=== PATIENT | female | born 1975 | race Caucasian/White ===

== ENCOUNTER 2017-04-14 15:30 | Observation (INO) | payer OTHER ==
[~2017-04-14] VITALS: Ht 162.6 cm; Wt 80.3 kg
[2017-04-14] MEDS ORDERED: VIT1TABL66 PO (16:07)
[2017-04-14] MEDS ORDERED: FERR-89 PO (16:07)
[2017-04-14] MEDS ORDERED: FOLI1 PO (16:07)
[2017-04-14] MEDS ORDERED: PREN-134 PO (16:07)
[2017-04-14] MEDS ORDERED: CALC-1038 PO (16:07)
[2017-04-14 16:11] VITALS: BP 114/57
[2017-04-14] MEDS ORDERED: NIFEdipine 10 MG CAPSULE PO ONE (19:45)
== END 2017-04-14 20:50 | disposition home or self-care (01) ==
LOC: 4S 15:30
PROVIDERS: ADMIT Obstetrics & Gynecology; ATTEND Obstetrics & Gynecology
DX: O46.93 Antepartum hemorrhage, unspecified, third trimester (principal); Z3A.32 32 weeks gestation of pregnancy
CPT/HCPCS: 36415; 59025; 82731; 89060; G0378

== ENCOUNTER 2017-04-29 08:35 | Observation (INO) | payer OTHER ==
[~2017-04-29] VITALS: Ht 172.7 cm; Wt 79.4 kg
[~2017-04-29 08:35] MED LIST: CALC-1038 PO; FERR-89 PO; FOLI1 PO; PREN-134 PO; VIT1TABL66 PO
[2017-04-29 08:51] VITALS: BP 118/63
== END 2017-04-29 10:10 | disposition home or self-care (01) ==
LOC: 4S 08:35
PROVIDERS: ADMIT Obstetrics & Gynecology; ATTEND Obstetrics & Gynecology
DX: O09.523 Supervision of elderly multigravida, third trimester (principal); O98.813 Other maternal infectious and parasitic diseases complicating pregnancy, third trimester; Z3A.34 34 weeks gestation of pregnancy
CPT/HCPCS: 59025; G0378

== ENCOUNTER 2017-05-01 08:30 | Observation (INO) | payer OTHER ==
[~2017-05-01] VITALS: Ht 170.2 cm; Wt 80.3 kg
[2017-05-01 08:43] VITALS: BP 114/59
== END 2017-05-01 09:25 | disposition home or self-care (01) ==
LOC: 4S 08:30
PROVIDERS: ADMIT Obstetrics & Gynecology; ATTEND Obstetrics & Gynecology
DX: O09.523 Supervision of elderly multigravida, third trimester (principal); Z3A.34 34 weeks gestation of pregnancy

== ENCOUNTER 2017-05-04 08:05 | Observation (INO) | payer OTHER ==
[~2017-05-04] VITALS: Ht 172.7 cm; Wt 80.7 kg
[2017-05-04 08:30] VITALS: BP 101/61
== END 2017-05-04 12:00 | disposition home or self-care (01) ==
LOC: 4S 08:05
PROVIDERS: ADMIT Obstetrics & Gynecology; ATTEND Obstetrics & Gynecology
DX: O62.9 Abnormality of forces of labor, unspecified (principal); O26.893 Other specified pregnancy related conditions, third trimester; O09.523 Supervision of elderly multigravida, third trimester; R10.30 Lower abdominal pain, unspecified; Z3A.35 35 weeks gestation of pregnancy
CPT/HCPCS: 59025; G0378

== ENCOUNTER 2017-05-07 07:52 | Observation (INO) | payer OTHER ==
[~2017-05-07] VITALS: Ht 172.7 cm; Wt 79.8 kg
[2017-05-07 09:09] VITALS: BP 113/65
== END 2017-05-07 09:05 | disposition home or self-care (01) ==
LOC: 4S 07:52
PROVIDERS: ADMIT Obstetrics & Gynecology; ATTEND Obstetrics & Gynecology
DX: O09.523 Supervision of elderly multigravida, third trimester (principal); Z3A.35 35 weeks gestation of pregnancy
CPT/HCPCS: 59025; G0378

== ENCOUNTER 2017-05-11 08:48 | Observation (INO) | payer OTHER ==
[~2017-05-11] VITALS: Ht 172.7 cm; Wt 79.8 kg
[2017-05-11 09:53] VITALS: BP 105/64
== END 2017-05-11 09:50 | disposition home or self-care (01) ==
LOC: 4S 08:48
PROVIDERS: ADMIT Obstetrics & Gynecology; ATTEND Obstetrics & Gynecology
DX: O09.523 Supervision of elderly multigravida, third trimester (principal); Z3A.36 36 weeks gestation of pregnancy
CPT/HCPCS: 59025; G0378

== ENCOUNTER 2017-05-15 08:50 | Observation (INO) | payer OTHER ==
[~2017-05-15] VITALS: Ht 172.7 cm; Wt 80.7 kg
[2017-05-15 09:14] VITALS: BP 115/58
== END 2017-05-15 10:30 | disposition home or self-care (01) ==
LOC: 4S 08:50
PROVIDERS: ADMIT Obstetrics & Gynecology; ATTEND Obstetrics & Gynecology
DX: O09.523 Supervision of elderly multigravida, third trimester (principal); Z3A.37 37 weeks gestation of pregnancy
CPT/HCPCS: 59025; G0378

== ENCOUNTER 2017-05-19 08:55 | Observation (INO) | payer OTHER ==
[~2017-05-19] VITALS: Ht 170.2 cm; Wt 81.2 kg
[2017-05-19 09:17] VITALS: BP 122/59
== END 2017-05-19 10:30 | disposition home or self-care (01) ==
LOC: 4S 08:55
PROVIDERS: ADMIT Obstetrics & Gynecology; ATTEND Obstetrics & Gynecology
DX: O09.523 Supervision of elderly multigravida, third trimester (principal); Z3A.37 37 weeks gestation of pregnancy
CPT/HCPCS: 59025; G0378

== ENCOUNTER 2017-05-22 14:20 | Observation (INO) | payer OTHER ==
[~2017-05-22] VITALS: Ht 172.7 cm; Wt 80.7 kg
[2017-05-22 14:35] VITALS: BP 129/68
== END 2017-05-22 16:20 | disposition home or self-care (01) ==
LOC: 4S 14:20
PROVIDERS: ADMIT Obstetrics & Gynecology; ATTEND Obstetrics & Gynecology
DX: O09.523 Supervision of elderly multigravida, third trimester (principal); Z3A.38 38 weeks gestation of pregnancy
CPT/HCPCS: 59025; G0378

== ENCOUNTER 2017-05-25 15:30 | Observation (INO) | payer OTHER ==
[2017-05-25 15:53] VITALS: BP 123/62
== END 2017-05-25 16:55 | disposition home or self-care (01) ==
LOC: 4S 15:30
PROVIDERS: ADMIT Obstetrics & Gynecology; ATTEND Obstetrics & Gynecology
DX: O09.523 Supervision of elderly multigravida, third trimester (principal); Z3A.38 38 weeks gestation of pregnancy
CPT/HCPCS: 59025; G0378

== ENCOUNTER 2017-05-29 08:45 | Observation (INO) | payer OTHER ==
[~2017-05-29] VITALS: Ht 170.2 cm; Wt 82.1 kg
[2017-05-29 09:29] VITALS: BP 125/68
== END 2017-05-29 10:00 | disposition home or self-care (01) ==
LOC: 4S 08:45
PROVIDERS: ADMIT Obstetrics & Gynecology; ATTEND Obstetrics & Gynecology
DX: O26.893 Other specified pregnancy related conditions, third trimester (principal); O09.523 Supervision of elderly multigravida, third trimester; R10.30 Lower abdominal pain, unspecified; Z3A.38 38 weeks gestation of pregnancy
CPT/HCPCS: 59025; G0378

== ENCOUNTER 2017-05-30 18:42 | Observation (INO) | payer OTHER ==
[~2017-05-30] VITALS: Ht 172.7 cm; Wt 81.6 kg
[2017-05-30] MEDS ORDERED: RINGERS SOLUTION,LACTATED 1,000 ML IV SCH ×2 (19:30)
[2017-05-30 20:45] VITALS: BP 138/73
== END 2017-05-30 21:55 | disposition home or self-care (01) ==
LOC: 4S 18:42
PROVIDERS: ADMIT Obstetrics & Gynecology; ATTEND Obstetrics & Gynecology
DX: O62.9 Abnormality of forces of labor, unspecified (principal); O46.93 Antepartum hemorrhage, unspecified, third trimester; O09.523 Supervision of elderly multigravida, third trimester; O26.893 Other specified pregnancy related conditions, third trimester; R10.30 Lower abdominal pain, unspecified; Z3A.39 39 weeks gestation of pregnancy
CPT/HCPCS: 59025; 96360; 96361; G0378; J7120

== ENCOUNTER 2017-05-31 07:04 | Inpatient (IN) | payer OTHER ==
[2017-05-30] MEDS: DEXTROSE 5%-0.45% SODIUM CHL 1,000 ML IV SCH (08:30)
[~2017-05-31] VITALS: Ht 172.7 cm; Wt 81.6 kg
[2017-05-31] MEDS ORDERED: RINGERS SOLUTION,LACTATED 1,000 ML IV ONE ×2 (07:36→08:11)
[2017-05-31] MEDS ORDERED: CITRIC ACID/SODIUM CITRATE 30 ML SOLUTION UDCUP PO ONE (07:45)
[2017-05-31] MEDS ORDERED: METOCLOPRAMIDE HCL 5 MG/ML 2 ML VIAL IVP ONE (07:45)
[2017-05-31] MEDS ORDERED: CefoTEtan DISOD 2 GM/DEXTROSE 50 ML IV ONE (07:45)
[2017-05-31 07:47] VITALS: BP 146/79
[2017-05-31 08:07] LABS: BASOPHILS # (AUTO) 0.01 K/uL (0.00-0.20); BASOPHILS % (AUTO) 0.1 % (0.0-2.0); EOSINOPHILS # (AUTO) 0.12 K/uL (0.00-0.70); HEMATOCRIT 33.6 % (36-46); HEMOGLOBIN 11.3 g/dL (12.0-16.0); LYMPHOCYTES # (AUTO) 1.6 K/uL (1.0-4.8); LYMPHOCYTES % (AUTO) 17.8 % (22.0-44.0); MEAN CORPUSCULAR HEMOGLOBIN 31.4 pg (26.0-34.0); MEAN CORPUSCULAR HGB CONC 33.5 G/dL (31.0-37.0); MEAN CORPUSCULAR VOLUME 94 fL (80-100); MONOCYTES # (AUTO) 0.6 K/uL (0.1-1.0); MONOCYTES % (AUTO) 6.7 % (2.0-9.0); NEUTROPHILS # (AUTO) 6.8 K/uL (1.8-7.7); NEUTROPHILS % (AUTO) 74.1 % (40.0-70.0); RED BLOOD CELL COUNT(AUTO) 3.58 MIL/uL (4.00-5.20); RED CELL DISTRIBUTION WIDTH 14.5 % (11.5-14.5); WHITE BLOOD COUNT (AUTO) 9.2 K/uL (4.5-11.0)
[2017-05-31] MEDS ORDERED: MORPHINE SULFATE/PF 0.5 MG/ML 10 ML AMP ONE (08:11)
[2017-05-31] MEDS ORDERED: MIDAZOLAM HCL 2 MG/2 ML VIAL ONE (08:12)
[2017-05-31] MEDS ORDERED: ONDANSETRON HCL 4 MG/2 ML VIAL IVP PRN ×2 (10:15)
[2017-05-31] MEDS ORDERED: OXYGEN THERAPY IH SCH ×2 (10:15)
[2017-05-31] MEDS ORDERED: FentaNYL CITRATE-PF 100 MCG/2 ML VIAL IVP PRN (10:15)
[2017-05-31] MEDS ORDERED: MORPHINE SULFATE 2 MG/ML SYRINGE IVP PRN (10:15)
[2017-05-31] MEDS ORDERED: DiphenhydrAMINE HCL 50 MG/ML VIAL IVP PRN ×2 (10:15)
[2017-05-31] MEDS ORDERED: ACETAMINOPHEN 1000 MG/ISO-OSM 100 ML IV ONE (10:36)
[2017-05-31] MEDS: ACETAMINOPHEN 1000 MG/ISO-OSM 100 ML IV SCH ×2 (11:25→18:43)
[2017-05-31] MEDS: FentaNYL CITRATE-PF 100 MCG/2 ML VIAL IVP PRN (13:09)
[2017-05-31] MEDS ORDERED: OXYTOCIN 20 UNITS/LACT RINGERS 1,000 ML IV SCH ×2 (13:20→17:30)
[2017-05-31] MEDS ORDERED: OxyCODONE HCL/ACETAMINOPHEN 5-325 MG TABLET PO PRN (13:30)
[2017-05-31] MEDS ORDERED: GLYCERIN/WITCH HAZEL LEAF 40 PADS JAR TP PRN (13:30)
[2017-05-31] MEDS: MORPHINE SULFATE 4 MG/ML SYRINGE IVP PRN (13:49)
[2017-05-31] MEDS ORDERED: KETOROLAC TROMETHAMINE 30 MG/ML VIAL IVP PRN (14:30)
[2017-05-31] MEDS: NALBUPHINE HCL 10 MG/ML VIAL IVP SCH ×2 (15:23→22:44)
[2017-06-01] MEDS: FentaNYL CITRATE-PF 100 MCG/2 ML VIAL IVP PRN (00:15)
[2017-06-01] MEDS: DEXTROSE 5%-0.45% SODIUM CHL 1,000 ML IV SCH ×2 (01:22→15:55)
[2017-06-01] MEDS: ACETAMINOPHEN 1000 MG/ISO-OSM 100 ML IV SCH (04:21)
[2017-06-01 06:30] LABS: BASOPHILS # (AUTO) 0.04 K/uL (0.00-0.20); BASOPHILS % (AUTO) 0.3 % (0.0-2.0); EOSINOPHILS # (AUTO) 0.07 K/uL (0.00-0.70); HEMATOCRIT 28.5 % (36-46); HEMOGLOBIN 9.5 g/dL (12.0-16.0); LYMPHOCYTES # (AUTO) 1.7 K/uL (1.0-4.8); LYMPHOCYTES % (AUTO) 12.4 % (22.0-44.0); MEAN CORPUSCULAR HEMOGLOBIN 31.5 pg (26.0-34.0); MEAN CORPUSCULAR HGB CONC 33.4 G/dL (31.0-37.0); MEAN CORPUSCULAR VOLUME 94 fL (80-100); MONOCYTES # (AUTO) 0.6 K/uL (0.1-1.0); MONOCYTES % (AUTO) 4.6 % (2.0-9.0); NEUTROPHILS # (AUTO) 11.1 K/uL (1.8-7.7); NEUTROPHILS % (AUTO) 82.2 % (40.0-70.0); RED BLOOD CELL COUNT(AUTO) 3.02 MIL/uL (4.00-5.20); RED CELL DISTRIBUTION WIDTH 14.9 % (11.5-14.5); WHITE BLOOD COUNT (AUTO) 13.5 K/uL (4.5-11.0)
[2017-06-01] MEDS: MORPHINE SULFATE 4 MG/ML SYRINGE IVP PRN (08:25)
[2017-06-01] MEDS: IBUPROFEN 800 MG TABLET PO SCH ×3 (08:25→21:11)
[2017-06-01] MEDS: MAGNESIUM HYDROXIDE SUSPENSION 30 ML UDCUP PO SCH ×2 (09:50→21:11)
[2017-06-02] MEDS: IBUPROFEN 800 MG TABLET PO SCH ×4 (03:11→21:02)
[2017-06-02] MEDS ORDERED: DEXAMETHASONE SOD PHOS 4 MG/ML VIAL IVP ONE (05:14)
[2017-06-02] MEDS ORDERED: OXYTOCIN 10 UNITS/ML VIAL IM ONE (05:14)
[2017-06-02] MEDS ORDERED: ONDANSETRON HCL 4 MG/2 ML VIAL IVP ONE (05:14)
[2017-06-02] MEDS: MAGNESIUM HYDROXIDE SUSPENSION 30 ML UDCUP PO SCH ×2 (08:00→21:00)
[2017-06-02] MEDS: OxyCODONE HCL/ACETAMINOPHEN 5-325 MG TABLET PO PRN (17:51)
[2017-06-03] MEDS: IBUPROFEN 800 MG TABLET PO SCH ×2 (02:41→09:44)
[2017-06-03] MEDS: OxyCODONE HCL/ACETAMINOPHEN 5-325 MG TABLET PO PRN ×2 (05:47→09:44)
[2017-06-03] MEDS: MAGNESIUM HYDROXIDE SUSPENSION 30 ML UDCUP PO SCH (08:56)
[2017-06-03] MEDS ORDERED: PERCT PO (11:03)
[2017-06-03] MEDS ORDERED: FERR-89 PO (11:03)
[2017-06-03] MEDS ORDERED: DSS100 PO (11:03)
[2017-06-03] MEDS ORDERED: IBUP-2070 PO (11:03)
== END 2017-06-03 13:25 | disposition home or self-care (01) | DRG 540 ==
LOC: OBSVTOIN 07:04 → 4S 07:04
PROVIDERS: ADMIT Obstetrics & Gynecology; ATTEND Obstetrics & Gynecology
PROC: 10D00Z1 Extraction of Products of Conception, Low, Open Approach (ICD-10-PCS; principal; 2017-05-31)
PROC: 0UB70ZZ Excision of Bilateral Fallopian Tubes, Open Approach (ICD-10-PCS; 2017-05-31)
DX: O34.211 Maternal care for low transverse scar from previous cesarean delivery (principal); O09.523 Supervision of elderly multigravida, third trimester; Z37.0 Single live birth; Z3A.39 39 weeks gestation of pregnancy
CPT/HCPCS: 87081; 88302; J0131; J0690; J1100; J1885; J2250; J2270; J2274; J2300; J2405; J2590; J2765; J3010; J7120

== ENCOUNTER 2024-10-12 17:56 | Emergency (ER) | payer OTHER ==
[~2024-10-12] VITALS: Ht 160 cm; Wt 77.0 kg
[~2024-10-12 17:56] MED LIST changes: -CALC-1038 PO; +DSS100 PO; -FERR-89 PO; +FERR325T27 PO; -FOLI1 PO; +IBUP-1492 PO; +PERCT PO
[2024-10-12 18:06] VITALS: BP 131/66; PULSE 84; RESP 18; TEMP 97.9; O2SAT 97
[2024-10-12] MEDS ORDERED: IBUP-1492 PO (19:00)
[2024-10-12] MEDS ORDERED: LIDO700A15 TP (19:00)
[2024-10-12] MEDS ORDERED: ACET-3385 PO (19:00)
[2024-10-12] MEDS: IBUPROFEN 600 MG TABLET PO ONE (19:11)
[2024-10-12] MEDS: LIDOCAINE 5% TRANSDERMAL PATCH TD ONE (19:11)
== END 2024-10-12 19:14 | disposition home or self-care (01) ==
LOC: EMS 17:56
DX: S16.1XXA Strain of muscle, fascia and tendon at neck level, initial encounter (principal); Z98.51 Tubal ligation status; V43.52XA Car driver injured in collision with other type car in traffic accident, initial encounter; Y93.89 Activity, other specified; Y92.410 Unspecified street and highway as the place of occurrence of the external cause; Y99.8 Other external cause status
CPT/HCPCS: 99283